=== PATIENT | female | born 2000 | race Two or more races ===

== ENCOUNTER 2022-11-13 02:31 | Emergency (ER) | payer OTHER ==
[~2022-11-13] VITALS: Ht 152.4 cm; Wt 76.1 kg
[2022-11-13 03:12] LABS: Basophils # (auto) 0 10 ^3/uL (0-0.2); Basophils % (auto) 0.2 % (0.0-2.0); Eosinophils # (auto) 0.2 10 ^3/uL (0-0.8); Eosinophils % (auto) 1.4 % (0.0-7.0); Hematocrit 36.4 % (36.0-46.0); Lymphocytes # (auto) 2.9 10 ^3/uL (0.4-5.4); Mean Corpuscular Hemoglobin 27.3 pg (28.0-32.0); Mean Corpuscular Hgb Conc. 32.8 g/dL (32.0-36.0); Mean Corpuscular Volume 83.1 fL (80.0-100.0); Monocytes # (auto) 0.5 10 ^3/uL (0-1.3); Monocytes % (auto) 4.3 % (0.0-12.0); Neutrophils # (auto) 8.1 10 ^3/uL (1.6-8.6); Neutrophils % (auto) 69.1 % (37.0-80.0); Nucleated Red Blood Cells % 0.1 %; Red Blood Cells 4.38 10^6/uL (4.0-5.20); Red Cell Distribution Width 14.6 % (11.8-14.3); White Blood Cell 11.7 10^3/uL (4.4-10.8)
[2022-11-13 03:30] LABS: Alanine Aminotransferase 43 U/L (7-40); Alkaline Phosphatase 80 U/L (46-116)
[2022-11-13 03:31] LABS: Albumin 4.4 g/dL (3.2-4.8); Anion Gap 7.5 (5-15); Aspartate Aminotransferase 15 U/L (13-40); Bilirubin, Total 0.3 mg/dL (0.2-1.0); Calcium 9.3 mg/dL (8.7-10.4); Carbon Dioxide 25.5 mmol/L (20-30); Chloride 102 mmol/L (98-107); Glucose 100 mg/dL (74-106); Lipase 41 U/L (12-53); Potassium 4.1 mmol/L (3.5-5.1); Sodium 135 mmol/L (136-145); Total Protein 7.6 g/dL (5.7-8.2)
[2022-11-13 03:32] LABS: Urine Bacteria FEW /hpf (None Seen); Urine Blood 2+ /uL (Negative); Urine Clarity HAZY (Clear); Urine Color Yellow (Yellow); Urine Mucus FEW (None Seen); Urine Protein, UAD TRACE (Negative); Urine Urobilinogen Normal (Negative); Urine WBC 3 /hpf (0 - 5); Urine pH 6.5 (5.0-8.0)
[2022-11-13 03:39] LABS: BUN/Creatinine Ratio 10.9 (10.0-20.0); Blood Urea Nitrogen < 5 mg/dL (9-23)
[2022-11-13 06:24] VITALS: BP 104/57; PULSE 85; RESP 18; TEMP 98.1; O2SAT 99
[2022-11-13] MEDS ORDERED: SODIUM CHLORIDE 0.9% 1,000 ML IV ONE (06:45)
[2022-11-13] MEDS ORDERED: PROMETHAZINE HCL 25 MG/ML 1ML IV ONE (06:45)
[2022-11-13] MEDS ORDERED: CEPH250C PO (07:12)
== END 2022-11-13 06:50 | disposition left against medical advice (07) ==
LOC: ER 02:31
DX: O23.31 Infections of other parts of urinary tract in pregnancy, first trimester (principal); O26.891 Other specified pregnancy related conditions, first trimester; R10.2 Pelvic and perineal pain; N39.0 Urinary tract infection, site not specified; Z3A.12 12 weeks gestation of pregnancy
CPT/HCPCS: 36415; 80053; 81001; 81025; 83690; 84702; 85025